=== PATIENT | female | born 1995 | race Caucasian/White ===

== ENCOUNTER 2022-07-18 18:10 | Emergency (ER) | payer MEDICAID, SELFPAY ==
[2022-07-18 18:44] VITALS: BP 118/78; PULSE 90; RESP 16; TEMP 36.6; O2SAT 99; BMI 21.6
[2022-07-18 20:52] LABS: Appearance Urine Clear (Clear); Bilirubin Urine Negative (Negative); Blood Urine 3+ (Negative); Color Urine Yellow (Yellow); Glucose Urine Negative (Negative); Ketones Urine Negative (Negative); Leukocyte Esterase Urine 3+ (Negative); Nitrite Urine Negative (Negative); Protein Urine 1+ (Negative); Specific Gravity Urine <= 1.005 (1.000-1.030); Urobilinogen Urine 0.2 (0.2-1.0)
[2022-07-18 20:54] VITALS: BP 120/74; PULSE 84; RESP 16; TEMP 36.6; O2SAT 99
[2022-07-18 20:56] LABS: HCG Qualitative* Negative (Negative)
[2022-07-18 20:57] VITALS: BP 119/78; PULSE 78; RESP 16
[2022-07-18 21:01] LABS: Bacteria Urine Few
--- NOTE | 2022-07-19 00:41 | ED_ITS ---
HPI - Female Genitourinary General Date Seen: 07/18/22 Chief complaint: Urogenital Problems, Female Stated complaint: Kidney Stones Time Seen by Provider: 07/18/22 20:05 Source: patient Mode of arrival: ambulatory Limitations: no limitations History of Present Illness HPI Narrative: Patient is a very nice 26-year-old female presents here after 1st being seen urgent care and sent here, as she was having dysuria frequency and some hematuria, she passed what appears to be a blood clot, took a picture of it and they were worried in urgent care that she may have a kidney stone. He denies any back pain or any abdominal pain associated with this, some postvoid urgency is noted, she does not have fevers chills nausea vomiting. She has a bit of issue with hematuria, has seen Urology recently in April of 2022, cystoscopy was negative at that time, was placed on a course of Macrobid that really help this for 1 month. She tells me she is not as she just had her. She is on control. MD elicited complaint: dysuria Pertinent past history: recurrent UTIs Quality of pain: burning Vaginal discharge: none Vaginal bleeding: none Exacerbating factors: none Relieving factors: none Associated symptoms: denies other symptoms Treatment prior to arrival: none Related Data Home Medications Medication Instructions Recorded Confirmed cyclobenzaprine 10 mg tablet 10 mg PO 07/18/22 07/18/22 drospirenone 3 mg-ethinyl 1 tab PO 07/18/22 07/18/22 estradiol 0.02 mg tablet (Vestura (28)) lorazepam 0.5 mg tablet 0.5 mg PO 07/18/22 07/18/22 omeprazole 40 mg capsule,delayed 40 mg PO 07/18/22 07/18/22 release ondansetron 4 mg disintegrating 4 mg PO 07/18/22 07/18/22 tablet rizatriptan 5 mg tablet 5 mg PO ONCE 07/18/22 07/18/22 trazodone 50 mg tablet 50 mg PO 07/18/22 07/18/22 Allergies Allergy/AdvReac Type Severity Reaction Status Date / Time escitalopram [From Lexapro] Allergy Verified 07/18/22 17:23 Review of Systems Status of ROS: Reports: 10 or more systems reviewed and unremarkable except as noted in History and below PFSH PFSH Social History Smoking Status: Never smoker Do you use any of these nicotine containing products: None Second hand tobacco smoke exposure: No How often do you have a drink containing alcohol: never How often do you have six or more drinks on one occasion: Never AUDIT-C Alcohol total score: 0 Non-prescribed substance use: denies use Exam Narrative: Exam Narrative: On examination room for her abdomen is soft there is no guarding no organomegaly bowel sounds are normal, no CVA tenderness she no of back is nontender to palpation. Const: Vital Signs, click to edit/add: Vital Signs - 24 hr 07/18/22 18:44 07/18/22 20:54 07/18/22 20:57 Temperature 97.8 F 97.8 F Pulse Rate [Pulse Oximeter] 90 84 78 Respiratory Rate 16 16 16 Blood Pressure [Ri ght Upper Arm] 118/78 120/74 119/78 Pulse Oximetry 99 99 Oxygen Delivery Me thod Room Air Room Air Course Course Hospital Course: I discussed with the patient, this seems like a UTI given her findings on your urinalysis, a for prolonged course of Macrobid for 2 weeks may be indicated, he gave her prescription for this I recommend follow-up with primary care if ongoing symptoms, there also may be an interstitial cystitis component to this. We will grow her urine and see if it shows anything of significance, we went over signs and symptoms of worsening and she should follow up if these occur. Vital Signs Vital signs: Initial Vital Signs Temperature 97.8 F 07/18/22 18:44 Temperature Source Temporal Artery Scan 07/18/22 18:44 Pulse Rate 90 07/18/22 18:44 Respiratory Rate 16 07/18/22 18:44 Blood Pressure 118/78 07/18/22 18:44 Blood Pressure Mean 91 07/18/22 18:44 Blood Pressure Position Supine 07/18/22 18:44 Pulse Oximetry 99 07/18/22 18:44 Oxygen Delivery Method 07/18/22 18:44 Vital Signs Temperature 97.8 F 07/18/22 18:44 Pulse Rate 90 07/18/22 18:44 Respiratory Rate 16 07/18/22 18:44 Blood Pressure 118/78 07/18/22 18:44 Pulse Oximetry 99 07/18/22 18:44 Oxygen Delivery Method 07/18/22 18:44 Temperature 97.8 F 07/18/22 20:54 Pulse Rate 78 07/18/22 20:57 Respiratory Rate 16 07/18/22 20:57 Blood Pressure 119/78 07/18/22 20:57 Pulse Oximetry 99 07/18/22 20:54 Oxygen Delivery Method 07/18/22 20:54 MDM - Female Genitourinary Differential Diagnosis Differential diagnosis: Likely urinary tract infection, bacterial vaginosis, trichomoniasis, cervicitis, ovarian cyst, vaginitis, ruptured ovarian cyst, cystitis and dysmenorrhea Medical Records Attestation: I reviewed the patient's medical records. Lab Data Attestation: I reviewed the patient's lab results. Labs: Lab Results 07/18/22 07/18/22 Range/Units 20:31 20:32 HCG, Qual Negative (Negative) Urine Color Yellow (Yellow) Urine Appearance Clear (Clear) Urine pH 6.0 (5.0-8.5) Ur Specific [place] <= 1.005 (1.000-1.030) Urine Protein 1+ A (Negative) Urine Glucose (UA) Negative (Negative) Urine Ketones Negative (Negative) Urine Blood 3+ A (Negative) Urine Nitrite Negative (Negative) Urine Bilirubin Negative (Negative) Urine Urobilinogen 0.2 (0.2-1.0) Ur Leukocyte Esterase 3+ A (Negative) Urine RBC 5-10 A (0-2) Urine WBC 10-25 A (0-5) Ur Squamous Epith Cells None (None-Few) Urine Bacteria Few A (None) Discharge Plan Discharge Clinical Impression: Urinary tract infection Patient Disposition: Home, Self-Care Condition: Stable Instructions: Urinary Tract Infection in Women (DC) Additional Instructions: Home, rest and medications as directed. Suggest follow up if fevers, chills, or back pain. Prescriptions: No Action trazodone 50 mg tablet 50 mg PO ondansetron 4 mg tablet,disintegrating 4 mg PO cyclobenzaprine 10 mg tablet 10 mg PO Label Comments: TAKE 1 TABLET (10 MG) BY MOUTH AT BEDTIME IF NEEDED FOR MUSCLE SPASM. omeprazole 40 mg capsule,delayed release(DR/EC) 40 mg PO Label Comments: TAKE ONE CAPSULE BY MOUTH DAILY BEFORE A MEAL drospirenone-ethinyl estradiol [Vestura (28)] 3-0.02 mg tablet 1 tab PO lorazepam 0.5 mg tablet 0.5 mg PO rizatriptan 5 mg tablet 5 mg PO ONCE Rx Instructions: may repeat once after at least 2 hours Follow Up/Referrals: Rayna Oconnor MD [Primary Care Provider] - Stand Alone Forms: [employer] Info Instructions
== END 2022-07-18 20:57 | disposition home or self-care (01) ==
PROVIDERS: Emergency Provider Family Medicine; PCP Surgery
DX: N39.0 Urinary tract infection, site not specified (principal)
CPT/HCPCS: 81001; 84703; 87086; 87186; 99283

== ENCOUNTER 2022-08-28 06:10 | Day surgery (SDC) | payer MEDICAID, SELFPAY ==
[2022-08-28] VITALS (8 sets, daily range): BP systolic 102–125; BP diastolic 62–82; PULSE 52–76; RESP 16; TEMP 36.3–37.4; O2SAT 96–100; BMI 20.5
[2022-08-28 06:44] LABS: Ur HCG Qualitative* Negative (Negative)
[2022-08-28] MEDS: LACTATED RINGERS 1000 ML 1,000 ML 100 ML IV (06:55)
[2022-08-28] MEDS: SODIUM CHLORIDE 0.9 % (FLUSH) 10 ML SYRINGE IVF (06:55)
--- NOTE | 2022-08-28 07:08 | SUR.PREOP ---
Patient provided home covid negative results to RN.
--- NOTE | 2022-08-28 07:11 | W.ANESCHARGE ---
Anesthesia Charges Start Date/Time Anesthesia Start Date: 08/28/22 Anesthesia Start Time: 07:30 Stop Date/Time Anesthesia Stop Date: 08/28/22 Anesthesia Stop Time: 08:38
[2022-08-28] MEDS: BUPIVACAINE 0.25% 30 ML INJECTION (07:40)
[2022-08-28] MEDS: CEFAZOLIN 1 GM inj IVP (07:42)
--- NOTE | 2022-08-28 08:42 | W.ANESCHARGE ---
Anesthesia Charges Start Date/Time Anesthesia Start Date: 08/28/22 Anesthesia Start Time: 07:30 Stop Date/Time Anesthesia Stop Date: 08/28/22 Anesthesia Stop Time: 08:38
--- NOTE | 2022-08-28 08:47 | P.GSOP_ITS ---
Operative Note Date of procedure: 08/28/22 Pre-op diagnosis: Fibroadenoma right breast Post-op diagnosis: Same Type of Procedure: Right breast lumpectomy Indications: Patient is a 26-year-old female who presented to clinic with a symptomatic and growing fibroadenoma of the right breast. Risks and benefits of operative intervention were discussed at length with the patient, including but not limited to: Cosmetic defects, necrosis overlying skin, hematoma, seroma, infection and bleeding. All questions and concerns were addressed with patient agreeing to proceed. Procedure Description: After discussing the risks and benefits of the procedure, the patient signed informed consent.? The operative site was marked and the patient was brought to the operating room and placed on the operating table in supine position.? Care was taken to pad the patient's pressure points.?? The patient was then given sedation by anesthesia.?? The operative site was then prepped and draped in the usual sterile fashion.? A time-out was then performed. The right breast and axilla were prepped and draped in the usual sterile fa shion. Timeout was confirmed. Local anesthesia was infiltrated into a curvilinear incision in the 7:00 a.m. periareolar.. Using electrocautery, the palpable fibroadenoma was dissected circumferentially. The mass appeared very well contained and benign in appearance. Underlying dense breast tissue was also removed and sent with the specimen. This was sent for permanent pathology. The cavity was irrigated with normal saline. Hemostasis was assured with electrocautery. The incision was then closed in layers with interrupted 3 0 Vicryl and running 4-0 Monocryl stitch. Dermbond was placed over the wounds and an Yunior wrap applied. The patient was awakened without incident and taken to PACU in stable condition. Sponge, needle and instrument counts were correct x3 at the termination of the case. The patient tolerated the procedure well. Findings: Fibroadenoma of the right breast. Anesthesia: MAC Surgeon: Rayna Oconnor MD Estimated blood loss (mL): 5 Additional Specimen Information: Right breast lumpectomy Condition: stable Disposition: same day
[2022-08-28] MEDS: OXYCODONE 5 MG TABLET PO (08:51)
== END 2022-08-28 10:39 | disposition home or self-care (01) ==
PROVIDERS: Anesthesiology; PCP Physician Assistant; Visit Provider Surgery
PROC: (CPT 19120; principal; 2022-08-28 07:30)
DX: D24.1 Benign neoplasm of right breast (principal)
CPT/HCPCS: 19120; 00400; 81025; 88307; A9270; J0690; J2250; J2405; J2704; J3010; J3490; J7120